=== PATIENT | female | born 1985 | race Caucasian/White ===

== ENCOUNTER 2020-10-26 21:33 | Emergency (ER) | payer MEDICAID ==
[~2020-10-26] VITALS: Ht 157.5 cm; Wt 68.0 kg
[2020-10-27 04:32] VITALS: BP 121/84
[2020-10-27] MEDS ORDERED: ACETAMINOPHEN 325MG TABLET PO ONE (05:45)
[2020-10-27] MEDS ORDERED: BACITRACIN ZINC OINT UDPKT TOP ONE (05:45)
[2020-10-27] MEDS ORDERED: CEPH500C2 MT (05:46)
== END 2020-10-27 06:38 | disposition home or self-care (01) ==
LOC: ER 21:33
DX: S91.111A Laceration without foreign body of right great toe without damage to nail, initial encounter (principal); F31.9 Bipolar disorder, unspecified; F10.129 Alcohol abuse with intoxication, unspecified; Y90.9 Presence of alcohol in blood, level not specified; X58.XXXA Exposure to other specified factors, initial encounter; Y93.89 Activity, other specified; Y92.488 Other paved roadways as the place of occurrence of the external cause
CPT/HCPCS: 99285

== ENCOUNTER 2020-10-28 15:16 | Emergency (ER) | payer MEDICAID ==
[~2020-10-28] VITALS: Ht 167.6 cm; Wt 91.0 kg
[~2020-10-28 15:16] MED LIST: CEPH500C2 MT
[2020-10-28 20:00] VITALS: BP 112/76
== END 2020-10-28 21:06 | disposition home or self-care (01) ==
LOC: ER 15:16
DX: F10.129 Alcohol abuse with intoxication, unspecified (principal); I10 Essential (primary) hypertension; Y90.9 Presence of alcohol in blood, level not specified
CPT/HCPCS: 82962; 93005; 93971; 99284